=== PATIENT | male | born 1995 | race Caucasian/White ===

== ENCOUNTER → 2017-02-26 | Outpatient (CLI) | payer BC ==
[2017-02-26 13:59] LABS: HEMATOCRIT 46.6 % (42.0-52.0); HEMOGLOBIN 15.7 g/dl (14.0-18.0); MEAN CORPUSCULAR HEMOGLOBIN 29.8 pg (27.0-33.0); MEAN CORPUSCULAR HGB CONC 33.7 g/dl (32.0-36.5); MEAN CORPUSCULAR VOLUME 88.6 fl (80.0-96.0); PLATELET COUNT, AUTOMATED 224 10^3/uL (150-450); RED BLOOD COUNT 5.26 10^6/uL (4.30-6.10); RED CELL DISTRIBUTION WIDTH 12.6 % (11.5-14.5); WHITE BLOOD COUNT 9.9 10^3/uL (4.0-10.0)
[2017-02-26 14:03] LABS: ADD MANUAL DIFFER YES; DIFF SLIDE NUMBER 164; POSITIVE DIFF POS FLAG; POSITIVE MORPH POS FLAG
[2017-02-26 14:33] LABS: ATYPICAL LYMPH 10 % (0-5); EOSINOPHILS 1 % (0-5); LYMPHOCYTES 34 % (16-52); MONOCYTES 18 % (0-8); NEUTROPHILS 37 % (35-75)
[2017-02-26 14:34] LABS: MICROCYTOSIS 1+; PLATELET ESTIMATE NORMAL (NORMAL)
[2017-02-28 00:07] LABS: EBV VIRAL CAPSID AG IgM >160.0 U/mL (0.0-35.9)
[2017-02-28 00:07] LABS: EBV AB TO NUCLEAR ANTIGEN <18.0 U/mL (0.0-17.9); EBV VIRAL CAPSID AG IgG 30.2 U/mL (0.0-17.9)
== END ==
LOC: M WUC 09:56
DX: J02.9 Acute pharyngitis, unspecified (principal)
CPT/HCPCS: 86665